=== PATIENT | male | born 1960 | race Two or more races ===

== ENCOUNTER 2018-08-05 07:37 | Outpatient (CLI) | payer OTHER | END 2018-08-05 08:30 | disposition home or self-care (01) | LOC: NUCLEAR 07:37 | DX: I20.9 Angina pectoris, unspecified (principal) | CPT/HCPCS: 78452; 93017; A9500 ==

== ENCOUNTER 2022-10-04 14:37 | Inpatient (IN) | payer OTHER ==
[~2022-10-04] VITALS: Ht 175.3 cm; Wt 99.8 kg
[2022-10-04] MEDS ORDERED: INTUNIV2 MG PO (14:58)
[2022-10-04] MEDS ORDERED: CHLORTHALIDONE25 MG PO (14:58)
[2022-10-04] MEDS ORDERED: LIPITOR40 M1 PO (14:58)
[2022-10-04] MEDS ORDERED: HYDRALAZINE HCL25 MG PO (14:59)
[2022-10-04] MEDS ORDERED: NORVASC10 MG PO (14:59)
[2022-10-04] MEDS ORDERED: AVAPRO300 MG PO (14:59)
[2022-10-04] MEDS ORDERED: TERAZOSIN HCL5 MG PO (14:59)
[2022-10-04] MEDS ORDERED: FARXIGA10 MG PO (15:00)
--- NOTE | 2022-10-04 15:01 | NUR ---
PTE ALERTA Y ORIENTADO X3 EN COMPANIA DE FAMILIAR. PTE REFIRE TENER 2 HERNIA EN LA INLGE Y QUE NO PUEDE IR AL CHICHI DESDE ELINA.
--- NOTE | 2022-10-04 15:38 | NUR ---
SE LE ORIENTA A PACIENTE SOBRE LAS ORDENES MEDICAS, REFIERE ENTENDER LAS MISMAS. SE LE KATI LAS MUETRAS, SE LE ADMINISTRA MEDICAMENTO Y SE NOTIFICA CT ABDOMINAL ISA LAS ORDENES MEDICAS.
== END 2022-10-07 12:11 | disposition home or self-care (01) | DRG 352 ==
LOC: ER 14:37 → SEC-K 21:08 → MEDJ 21:08 → MEDI 10-06 07:37
PROVIDERS: ADMIT Internal Medicine; ATTEND Internal Medicine
PROC: 0YQ60ZZ Repair Left Inguinal Region, Open Approach (ICD-10-PCS; principal; 2022-10-04)
PROC: 0KXL0ZZ Transfer Left Abdomen Muscle, Open Approach (ICD-10-PCS; 2022-10-04)
DX: K40.30 Unilateral inguinal hernia, with obstruction, without gangrene, not specified as recurrent (principal); Z20.822 Contact with and (suspected) exposure to COVID-19

== ENCOUNTER 2023-02-16 15:50 | Emergency (ER) | payer OTHER ==
[~2023-02-16] VITALS: Ht 175.3 cm; Wt 97.5 kg
[~2023-02-16 15:50] MED LIST: AVAPRO300 MG PO; CHLORTHALIDONE25 MG PO; FARXIGA10 MG PO; HYDRALAZINE HCL25 MG PO; INTUNIV2 MG PO; LIPITOR40 M1 PO; NORVASC10 MG PO; TERAZOSIN HCL5 MG PO
[2023-02-17] MEDS ORDERED: MICRO-K 1010 MEQ PO (04:41)
[2023-02-17] MEDS ORDERED: TERAZOSIN HCL5 MG PO (04:41)
== END 2023-02-17 04:50 ==
LOC: ER 15:50
DX: K40.90 Unilateral inguinal hernia, without obstruction or gangrene, not specified as recurrent (principal); E87.6 Hypokalemia; E11.9 Type 2 diabetes mellitus without complications; I10 Essential (primary) hypertension
CPT/HCPCS: 36415; 74177; Q9965